=== PATIENT | male | born 1955 | race Hispanic/Latino ===

== ENCOUNTER 2024-08-18 15:04 | Emergency (ER) | payer OTHER ==
[~2024-08-18] VITALS: Ht 180.3 cm; Wt 127.0 kg
[~2024-08-18 15:04] MED LIST: [UNRECOGNIZED DRUG - CODE] IV
[2024-08-18] MEDS: ketOROlac 30MG VIAL (30MG/ML) IM ONE (15:39)
[2024-08-18] MEDS: HYDROcodone/acetaMINOPHEN 10/325 MG TAB PO ONE (15:39)
[2024-08-18] MEDS ORDERED: CIPR7.5D7 OTIC (15:47)
[2024-08-18] MEDS ORDERED: ACET-2079 PO (15:47)
--- NOTE | 2024-08-18 15:48 | ERN ---
General Chief Complaint: Earache Stated Complaint: LT EAR PAIN Time Seen by MD: 15:11 History of Present Illness Initial Comments 69-year-old male, diabetic, presents for a left ear pain for a week. Patient reports for the last week he has been having ear pains and he has developed discharge from the ear. He does have some discomfort at the tragus with swelling. He does have some discharge. No fevers or systemic symptoms. Allergies: Coded Allergies: No Known Allergies (Unverified Allergy, Unknown, 07/16/23) Home Meds Reported Medications Cefazolin Sodium (Ancef) 1 Gram/50 Ml Inj, 2 GM IV TID for 74 Days, ML 07/23/23 Past Medical History Past Medical History: Diabetes-Type II, High Cholesterol, Hypertension Past Surgical History: Other, None Social History Social History: Negative ROS Dictation CONSTITUTIONAL: No chills, no fever, no weakness, no diaphoresis, no malaise. HEAD/FACE: No signs of trauma. EENT: Ear pain RESPIRATORY: No cough, no orthopnea, no SOB, no stridor, no wheezing. CARDIOVASCULAR: No chest pain, no edema, no palpitations, no syncope. GASTROINTESTINAL/ABDOMINAL: No abdominal pain, no constipation, no diarrhea, no nausea, no vomiting. GENITOURINARY: No abnormal discharge, no dysuria, no frequent urination, no hematuria. No complaints of pain in the genitals. MUSCULOSKELETAL: No back pain, no gout, no joint pain, no joint swelling, no muscle pain, no muscle stiffness, no neck pain. INTEGUMENTARY: No change in color, no change in hair/nails, no dryness, no l esion, no lumps, no rash. NEUROLOGICAL/PSYCH: No anxiety, not depressed, no emotional problem, no headache, no numbness, no pre-existing deficit, no history of seizures, no tremors, no weakness. HEMATOLOGIC/LYMPHATIC: Not anemic, no history of blood clots, no apparent bleeding, no bruising, glands not swollen. All Systems Negative, Except as Noted. Physical Exam Physical Exam Dictation VITAL SIGNS: Reviewed. GENERAL APPEARANCE: Alert, oriented x3, no acute distress, obese. HEAD AND FACE: Non-traumatic. EYES: PERRL, pink conjunctivas, eyelid no trauma, anterior chamber clear. EARS: Pinnas intact and no signs of trauma or erythema. TMs no erythema. Left otitis externa, non malignant, NOSE: No discharge, no bleeding. OROPHARYNX: Mouth normal, teeth no caries, tongue pink. Pharynx clear, no erythema. Tonsils no exudates, no abscesses noted. Mucous membrane moist. NECK: Supple, non-tender, no thyromegaly, no masses, no JVD, no bruits. MDM CC: Left ear pain Historian: Patient Comorbidities: Diabetes No limitations by social determinants of health Vital signs are stable Clinical exam is positive for otitis externa. The TM is clear no signs of tightness media. No signs of mastoiditis. He is nontoxic in appearance. There is no swelling around the face. No labs or studies indicated We will discharge with a prescription for Ciprodex and Tylenol with codeine for severe pain. We will recommend PCP follow up. Patient agrees with this plan. ED Course Orders Procedure Category Date Status Time Ketorolac PHA 08/18/24 In Process Tromethamine 30mg/Ml 16:00 Hydrocodone/Apap PHA 08/18/24 In Process 10/325 Tab ([place] 10) 16:00 Current Medications Medications (Trade) Dose Ordered Sig/Dariel Route PRN Reason Start Time Stop Time Status Last Admin Dose Admin Acetaminophen/ Hydrocodone Bitart (NORco 10) 1 tab ONCE ONCE PO 08/18/24 16:00 08/18/24 16:01 08/18/24 15:39 Ketorolac Tromethamine (toRADol) 30 mg ONCE ONCE IM 08/18/24 16:00 08/18/24 16:01 08/18/24 15:39 Vital Signs Date Time Temp Pulse Resp B/P (MAP) Pulse Ox O2 Delivery O2 Flow Rate FiO2 08/18/24 15:21 98.1 78 20 131/58 98 Room Air* 0 21 08/18/24 15:05 99.1 101 20 156/82 97 Room Air DX & DISP Disposition: Discharge Departure Impression: Primary Impression: Left otitis externa Condition: Stable Scripts Acetaminophen with Codeine (Acetaminophen-Cod #3 Tablet) 300 Mg-30 Mg Tablet 1 TAB PO TIDP PRN for pain for 7 Days, #20 TAB 0 Refills Prov: MITESH CARR DO 08/18/24 Ciprofloxacin HCl/Dexameth (Ciproflox-Dexameth Otic Susp) 0.3 %-0.1 % Drops.susp 4 DROP OTIC BID for 7 Days, #7.5 ML 0 Refills Prov: MITESH CARR DO 08/18/24 Additional Instructions: You have otitis externa, which is an ear infection of the ear canal ("swimmer's ear"). I have prescribed Ciprodex eardrops. Please take as prescribed. I recommend using this until the infection clears. For pain, you can take 800 mg of ibuprofen 3 times a day. This medication is [id number]. I have also prescribed Tylenol with codeine to use for significant pain. You can take this every 4-6 hours as needed along with the ibuprofen. Avoid getting water in the ear while bathing or showering. Use a cotton ball coated with the petroleum jelly to block the ear canal if needed. Do not swim until your symptoms have resolved. I recommend avoiding using ear plugs her headphones. Please follow up with her primary doctor next week if you continue with symptoms. Return to the emergency department as needed. Referrals: IVETTE ROMERO (PCP) MITESH CARR DO Aug 18, 2024 15:48
[2024-08-18 15:54] VITALS: BP 124/53; PULSE 72; RESP 18; TEMP 98.8; O2SAT 98
== END 2024-08-18 15:55 | disposition home or self-care (01) ==
LOC: EDH 15:04
DX: H60.92 Unspecified otitis externa, left ear (principal); E11.9 Type 2 diabetes mellitus without complications; E78.00 Pure hypercholesterolemia, unspecified; I10 Essential (primary) hypertension; Z79.899 Other long term (current) drug therapy; Z98.890 Other specified postprocedural states
CPT/HCPCS: 99283; 96372; J1885

== ENCOUNTER 2024-11-05 11:24 | Emergency (ER) | payer OTHER ==
[~2024-11-05] VITALS: Ht 175.3 cm; Wt 106.6 kg
[~2024-11-05 11:24] MED LIST changes: +ACET-2079 PO; +CIPR7.5D7 OTIC
--- NOTE | 2024-11-05 11:50 | NUR ---
PT PLACED ON HALLWAY B1 STRETCHER ON THEIR OWN AT THIS TIME.
--- NOTE | 2024-11-05 12:08 | ERN ---
General Chief Complaint: Dizzy/Light Headed Stated Complaint: SUDDEN ONSET OF DIZZINESS Time Seen by MD: 11:26 History of Present Illness Initial Comments 61-year-old male brought in by EMS for lightheadedness and dizziness. Patient reports that he was in his normal state of health, he turned his head and he had an episode of the spinning. He felt dizzy and nauseous. He felt as though he may pass out. It happened about an hour ago. He was brief. The symptoms have since resolved. He reports he has had an ear infection in the left recently. Denies any cranial nerve deficits, chest pains, palpitations, recent fevers or vomiting. You currently in his normal state of health and wants to get "checked out. " EMS reports vital signs 171/84, heart rate of 75, blood glucose 184, 16 respirations, room air saturation 100% on room air. 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 Allergies: Coded Allergies: No Known Allergies (Unverified Allergy, Unknown, 07/16/23) Home Meds Active Scripts Acetaminophen with Codeine (Acetaminophen-Cod #3 Tablet) 300 Mg-30 Mg Tablet, 1 TAB PO TIDP PRN for pain for 7 Days, #20 TAB 0 Refills Prov:MITESH CARR DO 08/18/24 Ciprofloxacin HCl/Dexameth (Ciproflox-Dexameth Otic Susp) 0.3 %-0.1 % Drops.susp, 4 DROP OTIC BID for 7 Days, #7.5 ML 0 Refills Prov:MITESH CARR DO 08/18/24 Reported Medications Cefazolin Sodium (Ancef) 1 Gram/50 Ml Inj, 2 GM IV TID for 74 Days, ML 07/23/23 Past Medical History Past Medical History: Diabetes-Type II, High Cholesterol, Hypertension, Vascular Disease Past Surgical History: Other Surgical History Other: 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 HEAD/FACE: No signs of trauma. EENT: No eye pain, no blurred vision, no tearing, no double vision, no ear pain, no ear discharge, no nose pain, no nasal congestion, no throat pain, no throat swelling, no mouth pain. RESPIRATORY: No cough, no orthopnea, no SOB, no stridor, no wheezing. CARDIOVASCULAR: No chest pain, no edema, no palpitations, no syncope. GASTROINTESTINAL/ABDOMINAL: No abdominal pain, no constipation, no diarrhea, no nausea, no vomiting. GENITOURINARY: No abnormal discharge, no dysuria, no frequent urination, no hematuria. No complaints of pain in the genitals. MUSCULOSKELETAL: No back pain, no gout, no joint pain, no joint swelling, no muscle pain, no muscle stiffness, no neck pain. INTEGUMENTARY: No change in color, no change in hair/nails, no dryness, no lesion, no lumps, no rash. NEUROLOGICAL/PSYCH: Dizziness HEMATOLOGIC/LYMPHATIC: Not anemic, no history of blood clots, no apparent bleeding, no bruising, glands not swollen. All Systems Negative, Except as Noted. Physical Exam Physical Exam Dictation VITAL SIGNS: Reviewed. GENERAL APPEARANCE: Alert, oriented x3, no acute distress, obese. HEAD AND FACE: Non-traumatic. EYES: PERRL, pink conjunctivas, eyelid no trauma, anterior chamber clear. EARS: Pinnas intact and no signs of trauma or erythema. Ear canals clear and no discharge. TMs no erythema. NOSE: No discharge, no bleeding. OROPHARYNX: Mouth normal, teeth no caries, tongue pink. Pharynx clear, no erythema. Tonsils no exudates, no abscesses noted. Mucous membrane moist. NECK: Supple, non-tender, no thyromegaly, no masses, no JVD, no bruits. BREAST: Deferred. CHEST: No tenderness, no crepitus, no paradoxical movement, no retractions. LUNGS: Clear, well-ventilated, symmetric, no rales, no wheezing, no rhonchi, no stridor, good breath sounds bilaterally. HEART: Regular rate, regular rhythm, no murmur, no gallops. VASCULAR: No peripheral edema. ABDOMEN: Soft, positive bowel sounds, nondistended, no guarding, nontender, no rebound, no masses no hepatomegaly, no splenomegaly, no Wheeler's sign, no hernias. RECTAL: Deferred. GENITAL: Deferred. NEUROLOGICAL: Normal speech, gross motor function intact, gross sensory function intact. MUSCULOSKELETAL: Neck nontender, full range of motion, back nontender, full range of motion. EXTREMITIES: Nontender, full range of motion. SKIN: Color pink, dry, no turgor, no rash, no lacerations, no abrasions, no contusions. LYMPHATICS: Deferred. Results Laboratory and Microbiology Lab and Micro Result Laboratory Tests Test 11/05/24 12:25 White Blood Count 11.6 K/uL (4.8-10.8) H Red Blood Count 3.89 MIL/uL (4.50-6.20) L Hemoglobin 11.2 g/dL (14.0-18.0) L Hematocrit 34.8 % (42-54) L Mean Corpuscular Volume 89.5 fL (79-99) Mean Corpuscular Hemoglobin 28.8 pg (27.0-33.0) Mean Corpuscular Hemoglobin Concent 32.2 g/dL (32.0-36.0) Red Cell Distribution Width 14.4 % (11.0-15.5) Platelet Count 225 K/uL (130-400) Mean Platelet Volume 11.5 fL (7.5-10.5) H Immature Granulocyte % (Auto) 0.5 % (0-1) Neutrophils (%) (Auto) 88.5 % (40.0-77.0) H Lymphocytes (%) (Auto) 5.6 % (21.0-51.0) L Monocytes (%) (Auto) 4.3 % (3.0-13.0) Eosinophils (%) (Auto) 0.8 % (0.0-8.0) Basophils (%) (Auto) 0.3 % (0.0-5.0) Neutrophils # (Auto) 10.3 K/uL (1.8-7.7) H Lymphocytes # (Auto) 0.7 K/uL (1.0-4.8) L Monocytes # (Auto) 0.5 K/uL (0.1-1.0) Eosinophils # (Auto) 0.09 K/uL (0.00-0.70) Basophils # (Auto) 0.04 K/uL (0.00-0.20) Absolute Immature Granulocyte (auto 0.06 K/uL (0-1) Nucleated Red Blood Cells 0.0 % (0.0-0.19) White Cell Morphology Comment See comments Sodium Level 136 mmol/L (136-145) Potassium Level 4.5 mmol/L (3.5-5.1) Chloride Level 103 mmol/L (101-111) Carbon Dioxide Level 29 mmol/L (21-32) Blood Urea Nitrogen 22 mg/dL (7-18) H Creatinine 1.4 mg/dL (0.5-1.3) H Glomerular Filtration Rate Calc 55 mL/min (>90) Random Glucose 215 mg/dL (70-105) H Total Calcium 9.1 mg/dL (8.5-10.1) Total Creatine Kinase 93 U/L (21-232) # Troponin I High Sensitivity 12.3 ng/L (4-75) MDM CC: Episode of dizziness / vertigo Historian: Patient Comorbidities: DM two, DLD, HTN, vascular disease Vital signs: Mild hypertension otherwise stable Clinical exam is unremarkable. Cranial nerves are intact. Differential diagnosis: Vertigo, TIA, cardiogenic syncope, dehydration, and has been ankles have to be, other. EKG: Sinus rhythm, rate of 72, right bundle branch block morphology, normal axis, good R-wave progression. No STEMI. Independently interpreted by me. Labs ( independently ordered and interpreted me): Mild leukocytosis 11.6 K, no shift, no bands, normocytic anemia. Electrolyte stable. Kidney function 1.4 creatinine, this appears to be baseline based on previous labs with CKD. His glucose mildly elevated at 215. CK and troponin are normal. CT head ( independently ordered and interpreted by me ): No acute bleeds CXR (independently interpreted by me): No acute focal infiltrates cardiomegaly pleural effusions or major abnormalities. Patient's symptoms are most consistent with vertigo. Symptoms have resolved. There is no signs of stroke or TIA. No signs of cardiac disease. Patient received 1 L normal saline in the ER, re-evaluation is needed. We will DC with a prescription for meclizine and ACS of the vertebral attacks and recommend PCP follow up. ED Course Orders Procedure Category Date Status Time Cbc With Differential LAB 11/05/24 Complete 11:36 Cardiac Panel LAB 11/05/24 Complete 11:36 Chest 1vw RAD 11/05/24 Resulted 11:36 Ct Head/Brain W/O CT 11/05/24 Taken Contrast 11:36 12 Lead Ekg Tracing- EKG 11/05/24 Logged Technical 11:36 0.9%Nacl 1000ml (Ns PHA 11/05/24 Complete 1000ml) 12:00 Basic Metabolic Panel LAB 11/05/24 Complete 11:36 Current Medications Medications (Trade) Dose Ordered Sig/Dariel Route PRN Reason Start Time Stop Time Status Last Admin Dose Admin Sodium Chloride 1,000 ml @ 0 mls/hr ONCE ONCE IV 11/05/24 12:00 11/05/24 12:01 DC 11/05/24 12:29 Vital Signs Date Time Temp Pulse Resp B/P (MAP) Pulse Ox O2 Delivery O2 Flow Rate FiO2 11/05/24 11:25 97.9 75 12 171/84 100 Room Air 0 DX & DISP Disposition: Discharge Departure Impression: Primary Impression: Episodic peripheral vertigo Condition: Stable Additional Instructions: You appear to have an episode of vertigo. The CT scan of your head is unremarkable. Chest x-ray is normal. The EKG is stable. Your blood work is unremarkable. I recommend that you follow up with the primary doctor if you continue with symptoms. Please return to the emergency department as needed. Referrals: IVETTE ROMERO (PCP) MITESH CARR DO Nov 05, 2024 12:08
[2024-11-05] MEDS: 0.9%NACL 1000ML 1,000 ML IV ONE (12:29)
[2024-11-05 12:36] LABS: BASOPHILS # (AUTO) 0.04 K/uL (0.00-0.20); BASOPHILS % (AUTO) 0.3 % (0.0-5.0); EOSINOPHILS # (AUTO) 0.09 K/uL (0.00-0.70); EOSINOPHILS % (AUTO) 0.8 % (0.0-8.0); HEMATOCRIT 34.8 % (42-54); IMMATURE GRANULOCYTE ABSOLUTE 0.06 K/uL (0-1); LYMPHOCYTES # (AUTO) 0.7 K/uL (1.0-4.8); LYMPHOCYTES % (AUTO) 5.6 % (21.0-51.0); MEAN CORPUSCULAR HEMOGLOBIN 28.8 pg (27.0-33.0); MEAN CORPUSCULAR HGB CONC 32.2 g/dL (32.0-36.0); MEAN CORPUSCULAR VOLUME 89.5 fL (79-99); MONOCYTES # (AUTO) 0.5 K/uL (0.1-1.0); MONOCYTES % (AUTO) 4.3 % (3.0-13.0); NEUTROPHILS # (AUTO) 10.3 K/uL (1.8-7.7); NEUTROPHILS % (AUTO) 88.5 % (40.0-77.0); PLATELET COUNT (AUTO) 225 K/uL (130-400); RED BLOOD CELL COUNT(AUTO) 3.89 MIL/uL (4.50-6.20); RED CELL DISTRIBUTION WIDTH 14.4 % (11.0-15.5); WHITE BLOOD COUNT (AUTO) 11.6 K/uL (4.8-10.8)
--- NOTE | 2024-11-05 12:44 | HMCIMG ---
CHEST 1VW HISTORY: Syncope COMPARISON: 07/22/2023 FINDINGS: A frontal projection of the chest was obtained. Prominent interstitial markings are seen with possible superimposed infiltrates. There is round density noted in the right lower hemithorax may be related to nipple shadow versus mass lesion. Clinical correlation and follow-up examination would be helpful. The heart is borderline enlarged. Degenerative changes are seen. No evidence of aortic calcification is seen. IMPRESSION: 1. Prominent interstitial markings are seen with possible superimposed infiltrates. There is round density noted in the right lower hemithorax may be related to nipple shadow versus mass lesion. Clinical correlation and follow-up examination would be helpful.
[2024-11-05 12:47] LABS: CREATININE 1.4 mg/dL (0.5-1.3); POTASSIUM 4.5 mmol/L (3.5-5.1)
--- NOTE | 2024-11-05 13:30 | EKG ---
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
--- NOTE | 2024-11-05 13:36 | HMCIMG ---
CT HEAD/BRAIN W/O CONTRAST HISTORY: Dizzy spell COMPARISON: None TECHNIQUE: Multiple sequential axial images of the head were obtained from the base of the skull through vertex. Patient was not given contrast through intravenous route. FINDINGS: The ventricles and extraventricular CSF spaces are dilated consistent with cerebral atrophy. Nonspecific white matter changes seen. There is no midline shift, mass effect or herniation. No acute intracranial bleed is seen. Visualized portion of the paranasal sinuses are grossly within normal limits. There are bilateral mastoid effusion. IMPRESSION: 1. No acute intracranial bleed is seen. 2. Atrophy with white matter changes. There are bilateral mastoid effusion. CT was performed with one or more following dose reduction techniques: automated exposure control, adjustment of the mA and kv according to patient's size, or use of a iterative reconstruction technique.
[2024-11-05 13:54] VITALS: BP 137/42; PULSE 78; RESP 18; TEMP 98.1; O2SAT 98
== END 2024-11-05 13:55 | disposition home or self-care (01) ==
LOC: EDH 11:24
DX: H81.399 Other peripheral vertigo, unspecified ear (principal); E11.59 Type 2 diabetes mellitus with other circulatory complications; E78.00 Pure hypercholesterolemia, unspecified; I10 Essential (primary) hypertension; Z79.899 Other long term (current) drug therapy
CPT/HCPCS: 99285; 96360; 70450; 71045; 82550; 84484; 80048; 85025; 36415; 93005; J7030